=== PATIENT | female | born 1985 | race Caucasian/White ===

== ENCOUNTER 2020-10-18 09:42 | Emergency (ER) | payer OTHER, SELFPAY ==
[2020-10-18 10:06] VITALS: BMI 35.5
--- NOTE | 2020-10-18 10:40 | ED_ITS ---
HPI - General Adult General Chief complaint: Cardiac Arrest/CPR Stated complaint: cardiac arrest Time Seen by Provider: 10/18/20 10:14 Source: family (Patient's long-term partner, Apurva give me limited information) and EMS Mode of arrival: EMS Limitations: other (Cardiopulmonary arrest) History of Present Illness HPI narrative: 35-year-old female who uses the pronouns he and him and uses the name Ernesto who was brought to the emergency department in cardiopulmonary arrest after found unresponsive at home. The information came from the paramedics and the patient's partner of 11 years, Apurva was here in the emergency department and was able to give me a limited history. She states that the patient has a history of ADHD and a bad immune system but cannot give me any details. She states that the patient does have a history heroin use and that this morning he used heroin and drink alcohol. She found him kneeling at the side of the bed, unresponsive and cyanotic. A housemate started CPR and 911 was activated. Police with the 1st responders and they gave the patient intranasal Narcan x2 doses with no response. When paramedics arrived on the scene, the 1st rhythm was asystole. They were able to intubate the patient and established an IV. They gave the patient IV Narcan and continued with ACLS for approximately 40 minutes given a total of 6 rounds of epinephrine with no return of spontaneous circulation. The patient remained asystolic. On presentation to the emergency department, the patient was intubated, there was emesis on the patient's face and clothes, the patient was cyanotic. There were symmetric breath sounds with bag ventilation through the ET tube. The patient's rhythm was asystole. He had no palpable pulses and no spontaneous respirations. Given his initial rhythm of asystole, his cyanosis and 40 minutes of resuscitation with no return of spontaneous circulation, the patient was pronounced at 0944. Review of Systems Review of Systems: Yes Other (Unobtainable secondary to cardiac arrest) [facility] Past Medical History [facility] Narrative: Past medical history was unobtainable, patient does have history of ADHD, the patient's partner was too upset to answer any past medical history questions. The patient does use injection heroin and he does drink alcohol. He has a long-term partner who has lived with for 11 years, her name is Apurva and Apurva is here in the emergency department. Social History Social History Advance Directives: No Advance Directives Information Provided: No Physical Exam Vital Signs: Vital Signs: Body Mass Index 35.5 Const: Other: Patient is intubated, he is cyanotic from the neck up, there is emesis on his face and on his clothes, there is no evidence of head or neck trauma HENMT: Other: Patient's pupils are fixed and dilated Head: Yes normocephalic and Yes atraumatic Neck: Other: No neck trauma Chest: Other: No chest trauma, patient's chest does rise and fall with bagging through the endotracheal tube Resp: Other: Symmetric breath sounds noted with bagging, no spontaneous respirations Cardio: Other: No heart sounds on auscultation GI: Other: No evidence for trauma Skin: Other: Cyanosis Neuro: Other: No spontaneous movement Extrem: Other: No evidence of trauma Course Course Course Narrative: 35-year-old female who identifies as male who was brought to the emergency department in cardiopulmonary arrest. He was found unresponsive by his partner, the patient was cyanotic at the time that he was found by his partner. The patient did use heroin and did drink alcohol. First responders did administer Narcan intranasally x2 with no change. Paramedics found the patient to be asystolic. They started CPR and followed ACLS protocol. The patient was also given Narcan with no response. He was resuscitated for approximately 40 minutes with no return of spontaneous circulation prior to coming to the emergency department. When he presented to the emergency department, he was cyanotic, his rhythm in the emergency department as asystolic therefore no further resuscitation was attempted and the patient was pronounced . I did contact the medical planner's office and discuss the patient's presentation with Mariah Mason who is in programming specialist. The medical planner's office is taking to jurisdiction of this patient. drivers license examiner case number is [id number]. Critical Care Time Critical Care Time Critical Care Time: Yes Total Critical Care Time: 30 Attestation: Critical Care: The patient was critically ill with a high probability of imminent or life threatening deterioration. I spent greater than 30 minutes of discontinuous time evaluating the patient,delivering critical care at the bedside, discussing and evaluating pertinent data with medical planner. Critical care time does not include time spent performing separately billable pr ocedures or teaching. Total time spent performing critical care was 30minutes. Discharge Plan Discharge Clinical Impression: Cardiopulmonary arrest Narcotic overdose Qualifiers: Encounter type: initial encounter Injury intent: accidental or unintentional Qualified Code(s): T40.601A - Poisoning by unspecified narcotics, accidental (unintentional), initial encounter Patient Disposition: Date/Time: 10/18/20 09:44
== END 2020-10-18 12:34 | disposition expired ==
PROVIDERS: Emergency Provider Emergency Medicine Emergency Medical Services
DX: I46.9 Cardiac arrest, cause unspecified (principal); T40.1X1A Poisoning by heroin, accidental (unintentional), initial encounter; Y92.9 Unspecified place or not applicable; F11.10 Opioid abuse, uncomplicated
CPT/HCPCS: 31500; 99282; 99291